=== PATIENT | female | born 1980 | race Caucasian/White ===

== ENCOUNTER 2018-06-08 13:27 | Emergency (ER) | payer OTHER ==
[~2018-06-08] VITALS: Wt 54.2 kg
[2018-06-08 13:39] VITALS: BP 116/65; PULSE 84; RESP 22
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
[2018-06-08] MEDS ORDERED: IBUP-1542 PO (15:47)
[2018-06-08] MEDS ORDERED: HYDR-4011 PO (16:17)
== END 2018-06-08 16:35 | disposition home or self-care (01) ==
LOC: FTE 13:27
DX: M25.531 Pain in right wrist (principal); M25.532 Pain in left wrist; M25.552 Pain in left hip; M25.512 Pain in left shoulder
CPT/HCPCS: 73010; 73510; 81025